=== PATIENT | female | born 2000 | race Caucasian/White ===

== ENCOUNTER → 2021-10-05 | Day surgery (SDC) | payer BC ==
[~2021-10-05] MED LIST: FLONASE SPRAY; HYDROCODON-ACE1 EAC4 PO; KEFLEX CAP 250250 MG PO; LEXAPRO5 MG PO
== END | disposition home or self-care (01) ==
LOC: OR 08:00
DX: J34.2 Deviated nasal septum (principal); J34.3 Hypertrophy of nasal turbinates; J34.89 Other specified disorders of nose and nasal sinuses; J45.909 Unspecified asthma, uncomplicated; Z79.899 Other long term (current) drug therapy; Z20.822 Contact with and (suspected) exposure to COVID-19
CPT/HCPCS: 84703; J0171; J0690; J1100; J1170; J2001; J2250; J2370; J2405; J2704; J2710; J3010; J7030; J7120